=== PATIENT | female | born 1960 | race Two or more races ===

== ENCOUNTER 2018-10-12 13:50 | Outpatient (CLI) | payer OTHER | END 2018-10-12 13:55 | disposition home or self-care (01) | LOC: SONOGRAMA 13:50 → MAMO-SONO 14:15 | DX: R94.6 Abnormal results of thyroid function studies (principal); R73.01 Impaired fasting glucose; Z13.1 Encounter for screening for diabetes mellitus; M81.0 Age-related osteoporosis without current pathological fracture; E16.1 Other hypoglycemia ==

== ENCOUNTER 2019-09-06 14:12 | Outpatient (CLI) | payer OTHER | END 2019-09-06 14:31 | disposition home or self-care (01) | LOC: SONOGRAMA 14:12 → MAMO-SONO 14:15 → SONOGRAMA 14:31 | DX: N95.1 Menopausal and female climacteric states (principal); N95.2 Postmenopausal atrophic vaginitis ==

== ENCOUNTER 2019-10-24 07:19 | Outpatient (CLI) | payer OTHER | END 2019-10-24 07:28 | disposition home or self-care (01) | LOC: TOM 07:19 | PROVIDERS: ATTEND Internal Medicine Gastroenterology | DX: R10.31 Right lower quadrant pain (principal); R10.32 Left lower quadrant pain ==

== ENCOUNTER 2021-01-07 07:40 | Outpatient (CLI) | payer OTHER | END 2021-01-07 07:57 | disposition home or self-care (01) | LOC: TOM 07:40 | PROVIDERS: ATTEND Obstetrics & Gynecology | DX: Q44.6 Cystic disease of liver (principal); Q61.01 Congenital single renal cyst; K59.09 Other constipation; R10.2 Pelvic and perineal pain ==

== ENCOUNTER 2023-08-15 13:10 | Outpatient (CLI) | payer OTHER | END 2023-08-15 13:24 | disposition home or self-care (01) | LOC: TOM 13:10 | PROVIDERS: ATTEND Obstetrics & Gynecology | DX: R10.2 Pelvic and perineal pain (principal); R10.30 Lower abdominal pain, unspecified ==